=== PATIENT | female | born 1985 | race Two or more races ===

== ENCOUNTER 2018-07-18 09:30 | Inpatient (IN) | payer OTHER ==
[~2018-07-18] VITALS: Ht 167.6 cm; Wt 116.6 kg
[2018-07-21] MEDS ORDERED: PRENATABS RX T1 EACH PO (11:34)
== END 2018-07-25 12:20 | disposition home or self-care (01) | DRG 788 ==
LOC: OB/GYN 09:30 → O/R 07-22 07:47 → OB/GYN 07-22 17:50
PROVIDERS: ADMIT Specialist
PROC: 4A1HXCZ Monitoring of Products of Conception, Cardiac Rate, External Approach (ICD-10-PCS; 2018-07-22)
PROC: 0T9B70Z Drainage of Bladder with Drainage Device, Via Natural or Artificial Opening (ICD-10-PCS; 2018-07-22)
PROC: 10D00Z1 Extraction of Products of Conception, Low, Open Approach (ICD-10-PCS; principal; 2018-07-22 09:30)
DX: O82 Encounter for cesarean delivery without indication (principal); O65.4 Obstructed labor due to fetopelvic disproportion, unspecified; Z3A.40 40 weeks gestation of pregnancy; Z37.0 Single live birth